=== PATIENT | male | born 1955 | race African-American/Black ===

== ENCOUNTER 2017-10-15 00:25 | Inpatient (IN) | payer OTHER ==
[~2017-10-15] VITALS: Ht 165.1 cm; Wt 68.5 kg
[2017-10-15 00:52] LABS: BASOPHILS # (AUTO) 0.03 x10^3/uL (0-0.1); BASOPHILS % (AUTO) 0 % (0-1); EOSINOPHILS # (AUTO) 0.04 x10^3/uL (0-0.4); EOSINOPHILS % (AUTO) 1 % (1-7); LYMPHOCYTES # (AUTO) 0.65 x10^3/uL (1-3.4); LYMPHOCYTES % (AUTO) 9 % (22-44); MD NO; MEAN CORPUSCULAR HEMOGLOBIN 36.2 pg (27.5-34.5); MEAN CORPUSCULAR HGB CONC 33.9 g/dL (33.2-36.2); MEAN CORPUSCULAR VOLUME 106.9 fL (81-97); MONOCYTES # (AUTO) 0.53 x10^3/uL (0.2-0.8); MONOCYTES % (AUTO) 7 % (2-9); NEUTROPHILS % (AUTO) 83 % (42-75); PLATELET COUNT 180 x10^3/uL (130-400); RED BLOOD COUNT 4.46 x10^6/uL (4.38-5.82); RED CELL DISTRIBUTION WIDTH 15.9 % (9.4-14.8)
[2017-10-15 00:59] LABS: ALBUMIN 3.6 g/dL (3.4-5.0); ANION GAP 10 mmol/L (5-15); CHLORIDE 104 mmol/L (98-107); CREATININE 0.83 mg/dL (0.7-1.3)
[2017-10-15 01:03] LABS: TROPONIN I < 0.015 ng/mL (0.000-0.045)
[2017-10-15] MEDS ORDERED: LORazepam 2 MG/ML, 1ML ONE ×2 (01:10→02:07)
[2017-10-15] MEDS ORDERED: LORazepam 2 MG/ML, 1ML IVPush ONE ×2 (01:30→02:30)
[2017-10-15] MEDS ORDERED: TAMS-11 PO (01:51)
[2017-10-15] MEDS ORDERED: SODIUM CHLORIDE 0.9% 1,000ML IVBOLUS ONE (02:30)
[2017-10-15] MEDS ORDERED: SODIUM CHLORIDE 0.9% 1,000 ML IV ONE (03:16)
[2017-10-15] MEDS ORDERED: ONDANSETRON 2MG/ML, 2ML IVPush PRN ×2 (03:30→04:00)
[2017-10-15] MEDS ORDERED: ONDANSETRON ODT 4 MG PO PRN (04:00)
[2017-10-15] MEDS ORDERED: LORazepam 2 MG/ML, 1ML IVPush PRN (04:00)
[2017-10-15] MEDS ORDERED: ACETAMINOPHEN 325 MG TABLET PO PRN (04:00)
[2017-10-15] MEDS: LORazepam 1MG TABLET PO SCH ×5 (04:00→21:07)
[2017-10-15] MEDS ORDERED: LABETALOL 5MG/ML, 20ML IVPush PRN (04:00)
[2017-10-15] MEDS ORDERED: ENALAPRILAT 1.25 MG/ML, 2ML IVPush PRN (04:00)
[2017-10-15 04:07] LABS: ALBUMIN 3.6 g/dL (3.4-5.0); BILIRUBIN, DIRECT 0.8 mg/dL (0.1-0.2)
[2017-10-15 04:09] LABS: BILIRUBIN,INDIRECT 2.2 mg/dL (0.0-2.0); TOTAL PROTEIN 7.2 g/dL (6.4-8.2)
[2017-10-15] MEDS ORDERED: methylPREDNISolone SOD SUCC 125 MG/2 ML ONE (04:20)
[2017-10-15] MEDS: methylPREDNISolone SOD SUCC 40 MG/ML IV SCH ×2 (04:21→16:00)
[2017-10-15] MEDS ORDERED: LABETALOL 5MG/ML, 20ML ONE (04:23)
[2017-10-15] MEDS: ENOXAPARIN 40 MG/0.4 ML SQ SCH (04:59)
[2017-10-15] MEDS: POTASSIUM CHLORIDE 20 MEQ, MAGNESIUM SULFATE 2 GM, THIAMINE 100 MG, MVI ADULT 10 ML, FO... IV SCH (04:59)
[2017-10-15 05:00] LABS: RAPID INFLUENZA A Negative (Negative); RAPID INFLUENZA B Negative (Negative)
[2017-10-15] MEDS: ALBUTEROL SULFATE 2.5 MG/3 ML NPPB SCH ×5 (05:20→19:52)
[2017-10-15] MEDS ORDERED: ALBUTEROL SULFATE 2.5 MG/3 ML ONE (05:21)
[2017-10-15] MEDS ORDERED: OMNIPAQUE 350 MG/ML, 100ML BOTTLE ONE (05:38)
[2017-10-15] MEDS ORDERED: ATENOLOL 25 MG TABLET PO SCH (06:00)
[2017-10-15] MEDS ORDERED: TAMSULOSIN 0.4 MG CAP.ER.24H ONE (08:13)
[2017-10-15] MEDS ORDERED: LORazepam 1MG TABLET ONE (08:14)
[2017-10-15] MEDS: TAMSULOSIN 0.4 MG CAP.ER.24H PO SCH (09:08)
[2017-10-15] MEDS ORDERED: ALBUTEROL/IPRATROPIUM 2.5MG/0.5MG, 3 ML ONE (15:08)
[2017-10-15 18:12] VITALS: BP 149/90
[2017-10-15 20:00] VITALS: BP 157/78
[2017-10-16 03:23] VITALS: BP 153/76
[2017-10-16] MEDS: POTASSIUM CHLORIDE 20 MEQ, MAGNESIUM SULFATE 2 GM, THIAMINE 100 MG, MVI ADULT 10 ML, FO... IV SCH (04:27)
[2017-10-16] MEDS: ENOXAPARIN 40 MG/0.4 ML SQ SCH (04:27)
[2017-10-16] MEDS: LORazepam 1MG TABLET PO SCH ×3 (04:27→08:00)
[2017-10-16] MEDS: methylPREDNISolone SOD SUCC 40 MG/ML IV SCH (04:27)
[2017-10-16 08:23] VITALS: BP 165/103
[2017-10-16] MEDS: TAMSULOSIN 0.4 MG CAP.ER.24H PO SCH (08:24)
[2017-10-16] MEDS: ATENOLOL 50 MG TABLET PO SCH (08:25)
[2017-10-16] MEDS: ALBUTEROL SULFATE 2.5 MG/3 ML NPPB SCH ×4 (08:35→20:00)
[2017-10-16 09:18] VITALS: BP 165/103
[2017-10-16 13:50] VITALS: BP 159/91
[2017-10-16 19:42] VITALS: BP 139/93
[2017-10-17 02:00] VITALS: BP 162/98
[2017-10-17] MEDS: POTASSIUM CHLORIDE 20 MEQ, MAGNESIUM SULFATE 2 GM, THIAMINE 100 MG, MVI ADULT 10 ML, FO... IV SCH (04:21)
[2017-10-17] MEDS: ENOXAPARIN 40 MG/0.4 ML SQ SCH (04:21)
[2017-10-17 05:34] VITALS: BP 151/92
[2017-10-17] MEDS: ATENOLOL 50 MG TABLET PO SCH (05:42)
[2017-10-17] MEDS: ALBUTEROL SULFATE 2.5 MG/3 ML NPPB SCH ×2 (07:00→11:02)
[2017-10-17 07:47] VITALS: BP 143/92
[2017-10-17 08:46] LABS: BASOPHILS # (AUTO) 0.02 x10^3/uL (0-0.1); BASOPHILS % (AUTO) 0 % (0-1); EOSINOPHILS # (AUTO) 0.01 x10^3/uL (0-0.4); EOSINOPHILS % (AUTO) 0 % (1-7); LYMPHOCYTES # (AUTO) 1.14 x10^3/uL (1-3.4); LYMPHOCYTES % (AUTO) 13 % (22-44); MD NO; MEAN CORPUSCULAR HEMOGLOBIN 36.2 pg (27.5-34.5); MEAN CORPUSCULAR HGB CONC 33.2 g/dL (33.2-36.2); MEAN CORPUSCULAR VOLUME 109.1 fL (81-97); MEAN PLATELET VOLUME 7.6 fL (7.4-10.4); MONOCYTES # (AUTO) 0.53 x10^3/uL (0.2-0.8); MONOCYTES % (AUTO) 6 % (2-9); NEUTROPHILS # (AUTO) 7.31 x10^3/uL (1.8-6.8); NEUTROPHILS % (AUTO) 81 % (42-75); PLATELET COUNT 139 x10^3/uL (130-400); RED BLOOD COUNT 4.07 x10^6/uL (4.38-5.82); RED CELL DISTRIBUTION WIDTH 16.2 % (9.4-14.8)
[2017-10-17] MEDS: TAMSULOSIN 0.4 MG CAP.ER.24H PO SCH (09:21)
[2017-10-17] MEDS ORDERED: methylPREDNISolone SOD SUCC 125 MG/2 ML IVPush ONE (11:30)
[2017-10-17] MEDS ORDERED: METH4TAB2 PO (12:13)
== END 2017-10-17 15:08 | disposition home or self-care (01) | DRG 896 ==
LOC: ED 02:47 → EDIP 03:16 → 4WST 17:40 → DCLOUNGE 10-17 15:00
PROVIDERS: ADMIT Internal Medicine; ATTEND Internal Medicine
DX: F10.239 Alcohol dependence with withdrawal, unspecified (principal); Q33.6 Congenital hypoplasia and dysplasia of lung; G31.2 Degeneration of nervous system due to alcohol; I27.20 Pulmonary hypertension, unspecified; J84.10 Pulmonary fibrosis, unspecified; M41.9 Scoliosis, unspecified; J98.11 Atelectasis; G47.30 Sleep apnea, unspecified; I10 Essential (primary) hypertension; I49.3 Ventricular premature depolarization; J45.909 Unspecified asthma, uncomplicated; R09.02 Hypoxemia; Z85.46 Personal history of malignant neoplasm of prostate; Z87.81 Personal history of (healed) traumatic fracture; Z87.891 Personal history of nicotine dependence; Z91.81 History of falling; Z96.642 Presence of left artificial hip joint; Y90.9 Presence of alcohol in blood, level not specified
CPT/HCPCS: 36415; 71045; 71275; 80048; 80076; 80307; 82040; 83880; 84484; 85025; 87400; 93005; 94640; 96361; 96374; 96375; 96376; J1650; J3411; J3475; J3480; J7042; J7613; Q9967; J2060; J2920; J2930; J7030